=== PATIENT | male | born 1985 | race Caucasian/White ===

== ENCOUNTER 2021-05-13 19:41 | Emergency (ER) | payer SELFPAY ==
[2021-05-13 19:45] VITALS: BP 125/77; PULSE 95; TEMP 98.4; BMI 32.5
== END 2021-05-13 20:29 | disposition home or self-care (01) ==
LOC: JERFT 19:41
DX: H10.33 Unspecified acute conjunctivitis, bilateral (principal)
CPT/HCPCS: 99282-25